=== PATIENT | female | born 1990 | race Hispanic/Latino ===

== ENCOUNTER 2021-07-17 18:29 | Emergency (ER) | payer BC ==
[2021-07-17] MEDS ORDERED: HYDROcodone/Acetaminophen 7.5/325 mg Tablet ONE ×2 (18:44→19:15)
== END 2021-07-17 20:00 | disposition home or self-care (01) ==
LOC: ERS 18:29
DX: M25.561 Pain in right knee (principal); Z79.01 Long term (current) use of anticoagulants; X50.1XXA Overexertion from prolonged static or awkward postures, initial encounter